=== PATIENT | female | born 1975 | race Hispanic/Latino ===

== ENCOUNTER 2020-10-27 11:40 | Emergency (ER) | payer SELFPAY | END 2020-10-27 13:20 | disposition home or self-care (01) | LOC: BURERS 11:40 | DX: K59.00 Constipation, unspecified (principal); Z79.899 Other long term (current) drug therapy | CPT/HCPCS: 99283 ==

== ENCOUNTER 2024-09-27 17:25 | Emergency (ER) | payer OTHER, SELFPAY ==
[2024-09-27 17:43] LABS: Bilirubin Negative (Negative); Blood, Urine Large (Negative); Clarity Cloudy (Clear); Glucose, Urine (Dipstick) Negative (Negative); Ketone, Urine Negative (Negative); Leukocyte Large (Negative); Nitrite Positive (Negative); Protein, Urine (Dipstick) 100 mg/dL (Neg-Trace); Urobilinogen 0.2 mg/dL (Less than 2); pH, Urine 6.5 (5.0-9.0)
[2024-09-27 17:45] LABS: Specific Gravity, Urine 1.017 (1.002-1.036)
[2024-09-27 17:49] LABS: CAUTI Indications for Culture Acute Hematuria; RBC/HPF Greater than 50 HPF (0-3); Squamous Epithelial 0-3 HPF (0-3)
[2024-09-27 17:50] LABS: Bacteria/HPF 3+ HPF (None Seen); Urine Culture Reflex Yes Yes
[2024-09-27] MEDS ORDERED: cefTRIAXone (ROCEPHIN) 1 GM VIAL ONE (18:16)
[2024-09-27] MEDS ORDERED: Sterile Water 10 ML ONE (18:16)
[2024-09-27] MEDS ORDERED: HYDROcodone/Acetaminophen 5/325 mg Tablet ONE (18:30)
== END 2024-09-27 18:41 | disposition home or self-care (01) ==
LOC: BURERS 17:25
DX: N39.0 Urinary tract infection, site not specified (principal)
CPT/HCPCS: 81001; 87077; 87086; 87186; 96374; J0696